=== PATIENT | male | born 1950 | race Caucasian/White ===

== ENCOUNTER 2018-01-12 15:31 | Emergency (ER) | payer MEDICARE, BC ==
--- NOTE | 2018-01-12 16:10 | EDM.PDOC ---
ED HPI GENERAL MEDICAL PROBLEM - General Chief Complaint: Cardiovascular Problem Stated Complaint: PULSE IS LOW Time Seen by Provider: 01/12/18 15:36 Source of Information: Reports: Patient History Limitations: Reports: No Limitations - History of Present Illness INITIAL COMMENTS - FREE TEXT/NARRATIVE: The patient states that he has had easy fatigability, with activity such as fertilizing his lawn or climbing stairs, for the past month. He feels well when resting. He saw his PCP, Dr. Fisher, today. ECG demonstrated complete heart block. The patient was instructed to come to the ED - he drove himself. He has no complaints at this time. The patient states that he started taking vitamin B12 to see if that would help with his fatigability, otherwise, the patient takes no medications whatsoever. - Related Data Allergies Allergy/AdvReac Type Severity Reaction Status Date / Time No Known Allergies Allergy Verified 01/12/18 15:43 Home Meds: Home Meds . [No Known Home Meds] 01/12/18 [History] Past Medical History HEENT History: Reports: Impaired Vision Oncologic (Cancer) History: Reports: Prostate - Past Surgical History HEENT Surgical History: Reports: Oral Surgery ([place] teeth extraction) GI Surgical History: Reports: Hernia, Inguinal (right) Male Surgical History: Reports: Prostatectomy Social & Family History - Tobacco Use Smoking Status *Q: Former Smoker Years of Tobacco use: 18 Packs/Tins Daily: 1 Month/Year Tobacco Last Used: 30yrs ago - Caffeine Use Caffeine Use: Reports: Coffee - Alcohol Use Alcohol Use History: No - Recreational Drug Use Recreational Drug Use: No - Living Situation & Occupation Living situation: Reports: , with Spouse Occupation: Employed ([employer]) ED ROS GENERAL - Review of Systems Review Of Systems: ROS reveals no pertinent complaints other than HPI. ED EXAM, GENERAL - Physical Exam Exam: See Below Exam Limited By: No Limitations General Appearance: Alert, WD/WN, No Apparent Distress Eye Exam: Bilateral Eye: Normal Inspection Ears: Normal External Exam, Hearing Grossly Normal Nose: Normal Inspection, No Blood Throat/Mouth: Normal Inspection, Normal Lips, Normal Voice, No Airway Compromise Head: Atraumatic, Normocephalic Neck: Normal Inspection, Full Range of Motion Respiratory/Chest: No Respiratory Distress, Lungs Clear, Normal Breath Sounds, No Accessory Muscle Use Cardiovascular: Normal Peripheral Pulses, No Edema, No Gallop, No JVD, No Murmur , No Rub, Bradycardia (regular) Peripheral Pulses: 4+: Radial (L), Radial (R) GI/Abdominal: Normal Bowel Sounds, Soft, Non-Tender, No Organomegaly, No Distention, No Abnormal Bruit, No Mass (Male) Exam: Deferred Rectal (Males) Exam: Deferred Back Exam: Normal Inspection, Full Range of Motion, NT Extremities: Normal Inspection, Normal Range of Motion, No Pedal Edema, Normal Capillary Refill Neurological: Alert, Oriented, Normal Cognition, No Motor/Sensory Deficits Psychiatric: Normal Affect Skin Exam: Warm, Dry, Intact, Normal Color, No Rash EKG INTERPRETATION EKG Date: 01/12/18 Time: 15:42 Rhythm: Other (Complete heart block) Rate (Beats/Min): 29 Comparison: NA - No Prior EKG Course - Vital Signs Last Recorded V/S: Last Vital Signs Temp 36.6 C 01/12/18 17:54 Pulse 28 L 01/12/18 17:54 Resp 14 01/12/18 17:54 BP 142/60 H 01/12/18 17:54 Pulse Ox 98 01/12/18 17:54 - Orders/Labs/Meds Orders: Active Orders 24 hr Category Date Time Status EKG Documentation Completion [RC] STAT Care 01/12/18 15:51 Active - Re-Assessments/Exams Free Text/Narrative Re-Assessment/Exam: 01/12/18 16:[address] [facility] at 16:03. Case then discussed with Dr. Taveras, Solvent Process Extractor Operator at [facility], at 16: 06. He agrees that the patient needs a pacemaker. He would like the patient to be admitted to the Hospitalist, with him on consult. He will discuss the case with the Hospitalist. I am not comfortable with the patient driving himself to [place]. We will send him by ambulance. Departure - Departure Time of Disposition: 16:10 Disposition: DC/Tfer to Acute Hospital 02 Reason for Transfer *Q: Other (Need for pacemaker placement) Condition: Fair Clinical Impression: Complete heart block - My Orders Last 24 Hours: My Active Orders 01/12/18 15:51 EKG Documentation Completion [RC] STAT - Assessment/Plan Last 24 Hours: My Active Orders 01/12/18 15:51 EKG Documentation Completion [RC] STAT
== END 2018-01-12 17:54 ==
LOC: JD.ED 15:31
DX: I44.2 Atrioventricular block, complete (principal); Z87.891 Personal history of nicotine dependence
CPT/HCPCS: 93005; 99285-25

== ENCOUNTER 2024-09-02 15:41 | Emergency (ER) | payer BC, MEDICARE ==
[2024-09-02 17:49] LABS: BASOPHILS PERCENT AUTO 0.2 % (0.0-1.0); EOSINOPHILS PERCENT AUTO 0.2 % (0.0-6.0); HEMATOCRIT 46.3 % (42.0-52.0); HEMOGLOBIN 15.4 gm/dl (14.0-18.0); IMMATURE GRAN ABSOLUTE AUTO 0.04 K/mm3 (0.00-0.05); IMMATURE GRAN PERCENT AUTO 0.3 % (0.0-0.4); LYMPHOCYTES ABSOLUTE AUTO 1.5 K/mm3 (1.0-4.8); MEAN CORPUSCULAR HEMOGLOBIN 29.4 pg (28.0-32.0); MEAN CORPUSCULAR HGB CONC 33.3 g/dl (32.0-36.0); MEAN CORPUSCULAR VOLUME 88.4 fl (83.0-99.0); MONOCYTES ABSOLUTE AUTO 1.2 K/mm3 (0.0-0.8); MONOCYTES PERCENT AUTO 9.5 % (0.0-8.0); NEUTROPHILS ABSOLUTE AUTO 9.7 K/mm3 (1.8-7.7); NEUTROPHILS PERCENT AUTO 77.8 % (41.0-71.0); PLATELET COUNT,PLT 189 K/mm3 (150-400); RED BLOOD CELL COUNT 5.24 M/mm3 (4.52-5.90); WHITE BLOOD CELL COUNT,WBC 12.51 K/mm3 (3.9-11.3)
[2024-09-02] MEDS ORDERED: Naloxone 0.4 MG/ML SDV IVPUSH PRN (17:49)
[2024-09-02] MEDS ORDERED: fentaNYL 100 MCG/2 ML SDV IVPUSH ONE ×2 (17:49→17:50)
[2024-09-02 18:10] LABS: A/G RATIO 0.7 (1-2); ALBUMIN 3.5 g/dl (3.4-5.0); ANION GAP 18.5 (5-15); BILIRUBIN TOTAL 1.6 mg/dL (0.2-1.0); BUN/CREATININE RATIO 12.7 (14-18); CALCIUM 9.1 mg/dL (8.5-10.1); CREATININE 1.1 mg/dL (0.7-1.3); EST CRCL DRUG DOSING (CG) 64.67 mL/min; POTASSIUM,K 4.5 mEq/L (3.5-5.1); PROTEIN TOTAL,TP 8.2 g/dl (6.4-8.2)
[2024-09-02] MEDS: Acetaminophen/HYDROcodone 325-5 MG Tab PO ONE (18:23)
[2024-09-02] MEDS: Acetaminophen 325 MG Tab PO ONE (18:23)
[2024-09-02] MEDS: Sodium Chloride 0.9% 1,000 ML IV ONE (18:25)
[2024-09-02] MEDS: cefTRIAXone 500 MG Vial IVPUSH ONE (18:27)
[2024-09-02] MEDS: Ondansetron 4 MG/2 ML SDV IVPUSH ONE (18:27)
[2024-09-02] MEDS: Acetaminophen/oxyCODONE 325-5 MG Tab PO ONE (19:32)
== END 2024-09-02 19:40 | disposition home or self-care (01) ==
LOC: JD.ED 15:41
DX: J18.9 Pneumonia, unspecified organism (principal); E86.9 Volume depletion, unspecified; Z95.0 Presence of cardiac pacemaker; Z90.79 Acquired absence of other genital organ(s); Z79.899 Other long term (current) drug therapy
CPT/HCPCS: 36415; 71045; 80053; 82550; 85025; 87428; 93005; 96361; 96374; 96375; 99285; A9270; J0696; J2405; J7030; 93010; 99284

== ENCOUNTER 2024-09-03 22:16 | Emergency (ER) | payer MEDICARE ==
[2024-09-03] MEDS ORDERED: Sodium Chloride 0.9% 10 ML Syringe FLUSH PRN (22:31)
[2024-09-03] MEDS: Sodium Chloride 0.9% 100 ML IV SCH (23:08)
[2024-09-03] MEDS: Iopamidol 755 Mg/ML 100 ML Bottle IVPUSH ONE (23:08)
[2024-09-03] MEDS: Sodium Chloride 0.9% 10 ML Syringe FLUSH ONE (23:08)
[2024-09-03 23:15] LABS: BASOPHILS PERCENT AUTO 0.2 % (0.0-1.0); EOSINOPHILS ABSOLUTE AUTO 0.1 K/mm3 (0.0-0.4); EOSINOPHILS PERCENT AUTO 0.8 % (0.0-6.0); HEMATOCRIT 38.4 % (42.0-52.0); IMMATURE GRAN ABSOLUTE AUTO 0.04 K/mm3 (0.00-0.05); IMMATURE GRAN PERCENT AUTO 0.4 % (0.0-0.4); LYMPHOCYTES PERCENT AUTO 9.2 % (24.0-44.0); MEAN CORPUSCULAR HEMOGLOBIN 30.6 pg (28.0-32.0); MEAN CORPUSCULAR HGB CONC 33.6 g/dl (32.0-36.0); MEAN PLATELET VOLUME 8.8 fl (9.4-12.4); MONOCYTES ABSOLUTE AUTO 1.3 K/mm3 (0.0-0.8); MONOCYTES PERCENT AUTO 12.2 % (0.0-8.0); NEUTROPHILS ABSOLUTE AUTO 8.4 K/mm3 (1.8-7.7); NEUTROPHILS PERCENT AUTO 77.2 % (41.0-71.0); PLATELET COUNT,PLT 148 K/mm3 (150-400); RED BLOOD CELL COUNT 4.22 M/mm3 (4.52-5.90); WHITE BLOOD CELL COUNT,WBC 10.92 K/mm3 (3.9-11.3)
[2024-09-03 23:20] LABS: HEMOGLOBIN 12.9 gm/dl (14.0-18.0)
[2024-09-03 23:32] LABS: INR 1.09; PROTHROMBIN TIME 11.5 SECONDS (9.7-12.0)
[2024-09-03 23:33] LABS: PTT,PARTIAL THROMBOPLSTIN TIME 32.6 SECONDS (21.7-31.4)
[2024-09-03 23:47] LABS: A/G RATIO 0.7 (1-2); ALBUMIN 2.8 g/dl (3.4-5.0); ANION GAP 14.4 (5-15); BILIRUBIN TOTAL 0.7 mg/dL (0.2-1.0); CALCIUM 8.1 mg/dL (8.5-10.1); EST CRCL DRUG DOSING (CG) 71.13 mL/min; MAGNESIUM 1.9 mg/dL (1.8-2.4); POTASSIUM,K 4.4 mEq/L (3.5-5.1); PROTEIN TOTAL,TP 6.8 g/dl (6.4-8.2)
[2024-09-04 00:43] LABS: APPEARANCE,URINE CLEAR (Clear); BILIRUBIN,URINE NEGATIVE (Negative); COLOR,URINE LIGHT YELLOW (Yellow); GLUCOSE,URINE NEGATIVE (Negative); KETONES,URINE NEGATIVE (Negative); LEUKOCYTE ESTERASE,URINE NEGATIVE (Negative); NITRITE,URINE NEGATIVE (Negative); OCCULT BLOOD,URINE NEGATIVE (Negative); PROTEIN,URINE NEGATIVE (Negative)
[2024-09-04] MEDS ORDERED: Naloxone 0.4 MG/ML SDV IVPUSH PRN (00:58)
[2024-09-04] MEDS: HYDROmorphone 0.5 MG/0.5 ML Syringe IVPUSH ONE (01:04)
[2024-09-04] MEDS: Apixaban 5 MG Tab PO ONE (01:04)
== END 2024-09-04 03:05 | disposition home or self-care (01) ==
LOC: JD.ED 22:16
DX: I26.99 Other pulmonary embolism without acute cor pulmonale (principal); Z79.2 Long term (current) use of antibiotics
CPT/HCPCS: 36415; 71275; 80053; 81003; 83605; 83735; 83880; 84484; 85025; 85610; 85730; 93005; 96374; 99284; A9270; Q9967; 93010; 99285